=== PATIENT | female | born 1975 | race Asian ===

== ENCOUNTER 2020-08-12 22:36 | Emergency (ER) | payer OTHER, SELFPAY ==
[~2020-08-12] VITALS: Ht 160 cm; Wt 61.7 kg
[2020-08-12 22:39] VITALS: Ht 160 cm; Wt 61.7 kg
[2020-08-13 00:29] VITALS: BP 122/83
== END 2020-08-13 00:29 | disposition home or self-care (01) ==
LOC: ED 22:36
DX: U07.1 COVID-19 (principal)